=== PATIENT | male | born 1935 | race Caucasian/White ===

== ENCOUNTER 2024-07-12 12:21 | Emergency (ER) | payer MEDICARE, SELFPAY ==
[2024-07-12] VITALS (7 sets, daily range): BP systolic 101–150; BP diastolic 56–83; PULSE 76–93; RESP 16–22; TEMP 36.7–37.2; O2SAT 95–98; BMI 23.3
--- NOTE | 2024-07-12 12:43 | EKG_ITS ---
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
--- NOTE | 2024-07-12 13:05 | XR_ITS ---
Examination: AP chest single view Technique one AP portable semiupright chest single view Exam date and time: July 12, 2024 at 1336 hrs. Indications: Onset chest pain today. Findings: Minor prominence cardiac contour Cardiac leads satisfactory position Mild vascular congestion Minor atelectasis left base Prominent osteopenia Impression: Mild vascular congestion
--- NOTE | 2024-07-12 13:07 | PD.EDCHEST ---
ED Chest Pain RME/HPI General Chief Complaint: Shortness of Breath/Dyspnea Stated Complaint: ABDOMINAL PAIN Time Seen by Provider: 07/12/24 12:52 Arrival date/time: 07/12/24 12:21 RME / HPI RME / HPI narrative: 88-year-old male patient came in for evaluation regarding substernal chest pain. Onset of symptoms since 7:00 this morning, woke up with sudden onset of substernal chest pain, described as tiring, severity moderate. Patient denies any cough. Denies any nausea but feels like dry heaving. Patient denies any fever. Denies any trauma or fall. Patient waited for it to come down however is just getting worse that is why the called EMS. Patient was given fentanyl 100 mcg, and nitro with no relief. Denies any other complaints. Related Data Home Medications ?Medication ?Instructions ?Recorded ?Confirmed calcium carbonate (Natural Calcium) 1 tab PO BID ##0 12/28/15 01/26/19 cholecalciferol (vitamin D3) 25 1,000 unit PO BID #0 tabs 12/28/15 01/26/19 mcg (1,000 unit) capsule (Vitamin D3) fluticasone propionate 50 2 spray intranasal QDAY #0 spry 12/28/15 01/26/19 mcg/actuation nasal spray,suspension ketorolac 10 mg tablet 10 mg PO DAILY #0 tabs 12/28/15 01/26/19 butalbital 50 mg-acetaminophen 325 1 tab PO Q4H #0 caps 05/12/16 01/16/22 mg tablet diphenhydramine HCl 25 mg capsule 25 mg PO Q4H ##0 05/12/16 01/26/19 loratadine 10 mg tablet (Claritin) 10 mg PO QDAY #0 tabs 05/12/16 01/26/19 omega 4-siw-ozc-fish oil 1,200 mg 1,200 mg PO DAILY ##0 05/12/16 01/26/19 (144 mg-216 mg) capsule acetaminophen 500 mg tablet 500 mg PO Q6H PRN Pain 07/06/17 01/26/19 losartan 100 mg tablet 100 mg PO QDAY 07/06/17 01/16/22 metoprolol succinate 25 mg 25 mg PO QDAY 08/22/22 08/22/22 tablet,extended release 24 hr Previous Rx's ?Medication ?Instructions ?Recorded amoxicillin 875 mg-potassium 1 tab PO BID #14 tabs 07/12/24 clavulanate 125 mg tablet doxycycline monohydrate 100 mg 100 mg PO BID #14 caps 07/12/24 capsule ketorolac 10 mg tablet 10 mg PO Q8H PRN pain 5 days #20 07/12/24 tabs pantoprazole 40 mg tablet,delayed 40 mg PO QDAY #20 tabs 07/12/24 release (Protonix) Allergies Allergy/AdvReac Type Severity Reaction Status Date / Time aspirin Allergy Severe ITCHINESS Verified 01/16/22 09:39 Sulfa (Sulfonamide Allergy Severe Rash Verified 01/16/22 09:39 Antibiotics) terazosin Allergy Severe VOMITING, Verified 01/16/22 09:39 NAUSEA, UNCONCIOUSNESS Tetanus Vaccines and Toxoid Allergy Severe OLD Verified 01/16/22 09:39 TETANUS SHOT- SKIN RASH ciprofloxacin Allergy Intermediate Rash Verified 01/16/22 09:39 Quinolones Allergy Mild Rash Verified 01/16/22 09:39 latex Allergy Unknown Verified 01/16/22 09:39 celecoxib AdvReac Severe CAUSES Verified 01/16/22 09:39 MOUTH SORES codeine AdvReac Severe Vomiting Verified 01/16/22 09:39 oxycodone AdvReac Severe Vomiting Verified 01/16/22 09:39 Review of Systems Review of Systems Narrative Review of Systems: Review of system reviewed and within normal limits except mentioned in HPI ED Exam Narrative Physical exam: VITAL SIGNS: Reviewed. GENERAL APPEARANCE: Alert and interactive, follows commands, in pain, fragile early HEAD AND FACE: Non-traumatic. ENT: PERRL, pink conjunctivitis, eyelid no trauma, Mucous membrane moist. NECK: Supple, nontender, no nuchal rigidity. CHEST: No tenderness, no crepitus, no paradoxical movement, no retractions. LUNGS: Clear, well ventilated, symmetric, no rales, no wheezing, no ronchi, no stridor, good breath sounds bilaterally. HEART: Regular rate, regular rhythm, no murmur, no gallops. ABDOMEN: Soft, positive bowel sounds, nondistended, no guarding, nontender, no rebound, no masses, RECTAL: Deferred. GENITAL: Deferred. NEUROLOGICAL: Gross motor function intact sensory function intact, Appropriate for age. MUSCULOSKELETAL: low back nontender, full range of motion. EXTREMITIES: Nontender, full range of motion. SKIN: Color pink, dry, no rash, no lacerations, no abrasions, no contusions. LYMPHATICS: Deferred. Course Quality Measures none Orders Category Date Time Status CT Screening NOW Care 07/12/24 14:40 Active EKG (ED ONLY) *Do not use* NOW Care 07/12/24 12:[address] angio chest abdomen pelvis Stat Exams 07/12/24 15:01 Completed EKG (ED Only) Stat Exams 07/12/24 12:43 Draft US gall bladder Stat Exams 07/12/24 14:40 Completed XR chest 1V Stat Exams 07/12/24 13:05 Completed B-Type Natriuretic Peptide Stat Lab 07/12/24 13:20 Completed CBC [CBC] Stat Lab 07/12/24 13:20 Completed Comprehensive Metabolic Panel Stat Lab 07/12/24 13:20 Completed Partial Thromboplastin Time Stat Lab 07/12/24 13:20 Completed Prothrombin Time with INR Stat Lab 07/12/24 13:20 Completed Troponin I Stat Lab 07/12/24 13:20 Completed Urinalysis, C/S if Indicated Stat Lab 07/12/24 18:00 Completed Azithromycin Inj [Zithromax Inj] 500 mg Med 07/12/24 18:54 Discontinued Sodium Chloride 0.9% 250 ml [Ns] 250 ml IV X1 HYDROmorphone INJ [Dilaudid Inj] Med 07/12/24 13:04 Discontinued 1 mg IVP X1 ONE Ketorolac Inj [Toradol Inj] Med 07/12/24 18:54 Discontinued 30 mg IVP X1 ONE Ondansetron Inj [Zofran Inj] Med 07/12/24 13:04 Discontinued 4 mg IV X1 ONE Simethicone [Mylicon Chew] Med 07/12/24 18:54 Discontinued 180 mg PO X1 ONE cefTRIAXone [Rocephin] 1,000 mg Med 07/12/24 18:54 Discontinued Sodium Chloride 0.9% [Ns] 50 ml IV X1 Vital Signs Vital signs: Vital Signs Temperature 98.1 F 07/12/24 12:32 Pulse Rate 81 07/12/24 12:32 Respiratory Rate 19 07/12/24 12:32 Blood Pressure 134/56 H 07/12/24 12:32 Pulse Oximetry (%) 97 07/12/24 12:32 Oxygen Delivery Method Nasal Cannula 07/12/24 12:32 Oxygen Flow Rate 4 07/12/24 12:32 Chest Pain MDM Narrative [facility] Narrative:: 88-year-old male patient came in for evaluation regarding substernal chest pain. Onset of symptoms since 7:00 this morning, woke up with sudden onset of substernal chest pain, described as tiring, severity moderate. Patient denies any cough. Denies any nausea but feels like dry heaving. Patient denies any fever. Denies any trauma or fall. Patient waited for it to come down however is just getting worse that is why the called EMS. Patient was given fentanyl 100 mcg, and nitro with no relief. Denies any other complaints. EKG showed paced rhythm, ventricular to 64 bpm, no ST segment elevation depression noted. Laboratory workup all came back unremarkable. Including normal troponin. CT A chest and abdomen showed Pronounced inflammatory change about the right sternoclavicular joint, clinical correlation advised No thoracic aortic aneurysm dilatation Negative for pulmonary artery hypertension Negative for pulmonary artery emboli COPD Bibasilar pneumonia Primary hepatocellular disease Perinephric stranding, clinical correlation advised Normal appendix No bowel obstruction or diverticulitis Moderate prostatomegaly Chest x-ray came back mild vascular congestion, ultrasound of gallbladder showed no acute pathology. Patient received ceftriaxone IV and Zithromax IV. Prior to discharge patient's chest pain is totally gone, and patient satting 95% on room air. Patient appears nontoxic and hemodynamically stable. Patient discharged home and instructed to follow-up with primary care provider in 24 to 48 hours. Instructed to return to the emergency department immediately if worsening of symptoms Patient data External records reviewed:: None Clinical information provided by:: patient and family Social determinants that could affect healthcare access:: none Patient has the following chronic illnesses:: Hypertension, history of breast cancer, pacemaker How is presenting disease/condition affected by chronic disease/condition?: exacerbated by Evaluation data The following diagnostics were reviewed and interpreted by me:: lab results, radiology exam(s) and EKG tracing(s) Lab and/or radiology exams considered but not ordered:: None Interpretation Summary: See results in MDM Medications / Prescriptions Medications or Prescriptions considered but not ordered:: None Medication administrations:: Medication Administration History Discontinued Medications Hydromorphone HCl (Hydromorphone Inj 2 Mg/Ml Vial) 1 mg IVP X1 ONE Stop: 07/12/24 13:05 Last Admin: 07/12/24 13:48 Dose: 1 mg Documented By: MAVERICK Ceftriaxone Sodium 1,000 mg/ (Sodium Chloride) 50 mls @ 100 mls/hr IV X1 ONE Stop: 07/12/24 19:23 Last Infusion: 07/12/24 20:06 Dose: Infused Documented By: Admin: 07/12/24 19:36 Dose: 100 mls/hr Documented By: PRAVEENA Azithromycin 500 mg/ Sodium (Chloride) 250 mls @ 250 mls/hr IV X1 ONE Stop: 07/12/24 19:53 Last Admin: 07/12/24 20:07 Dose: 250 mls/hr Documented By: RACHID Ketorolac Tromethamine (Ketorolac Inj 30 Mg/Ml Vial) 30 mg IVP X1 ONE Stop: 07/12/24 18:55 Last Admin: 07/12/24 19:33 Dose: 30 mg Documented By: PRAVEENA Ondansetron HCl (Ondansetron Inj 2 Mg/Ml Inj 2 Ml) 4 mg IV X1 ONE; Protocol Stop: 07/12/24 13:05 Last Admin: 07/12/24 13:47 Dose: 4 mg Documented By: MAVERICK Simethicone (Simethicone 80 Mg Chew) 180 mg PO X1 ONE Stop: 07/12/24 18:55 Last Admin: 07/12/24 20:43 Dose: 180 mg Documented By: PRAVEENA Simethicone, Zofran Toradol Zithromax and ceftriaxone IV and IV Dilaudid also. Consultations Consultation(s) initiated? (list below): No Diagnosis Chest Pain Differential Diagnosis: pneumothorax and chest pain Most likely diagnosis given after review of the tests above:: Pneumonia, chest pain Admission Indicated Admission indicated?: not indicated Explain why admission is indicated or not indicated:: Stable Admission Request Was there a request for admission?: No Disposition Plan Disposition Plan: Discharge Discharge Attestation Discharge Attestation: The patient and all family members were given an opportunity to ask questions and understood the discharge instructions. Discharge instructions specifically effects, indications for sooner follow up or return to the emergency department, and the expected course of current diagnosis. Patient condition: Stable Discharge Plan Plan Patient Disposition: HOME (Self Care) Disposition Comment: Stable Prescriptions/Referrals Prescriptions/Med Rec: New amoxicillin-pot clavulanate 875-125 mg tablet 1 tab PO BID Qty: 14 0RF doxycycline monohydrate 100 mg capsule 100 mg PO BID Qty: 14 0RF pantoprazole [Protonix] 40 mg tablet,delayed release (DR/EC) 40 mg PO QDAY Qty: 20 0RF ketorolac 10 mg tablet 10 mg PO Q8H PRN (Reason: pain) 5 Days Qty: 20 0RF No Action ketorolac 10 mg Tablet 10 mg PO DAILY Qty: 0 calcium carbonate [Natural Calcium] 500 MG tablet 1 tab PO BID Qty: 0 fluticasone propionate 50 mcg/actuation [place],Suspension 2 spray INTRANASAL QDAY Qty: 0 cholecalciferol (vitamin D3) [Vitamin D3] 1,000 UNIT tablet 1,000 unit PO BID Qty: 0 butalbital-acetaminophen 50-325 mg Tablet 1 tab PO Q4H Qty: 0 diphenhydramine HCl 25 mg Capsule 25 mg PO Q4H Qty: 0 loratadine [Claritin] 10 MG tablet 10 mg PO QDAY Qty: 0 omega 5-zis-jkp-fish oil 1,200 (144-216) mg Capsule 1,200 mg PO DAILY Qty: 0 acetaminophen 500 mg Tablet 500 mg PO Q6H PRN (Reason: Pain) losartan 100 mg Tablet 100 mg PO QDAY metoprolol succinate 25 mg Tablet Extended Release 24 Hr 25 mg PO QDAY Referrals: Pamela Varela MD [Primary Care Provider] - In 1 week Problem List Clinical Impression: Chest pain, Pneumonia Patient/Caregiver Discharge Instructions Discharge Activity: activity as tolerated Education Materials: ED Pneumonia (Adult) Additional Instructions: Thank you for the opportunity for serving you today. You are stable for discharged . You are advised to: Follow-up with your PCP in 1 to 2 days Return to ED for worsening of symptoms Increase oral fluids Take medication as prescribed Print Language: Sri [place]an Stand Alone Forms: Lynette Award Info., Patient Portal Info Letter PA/CIGARETTE LIGHTER REPAIRER Supervising Physician PA/JASON Supervising Physician: MD Carol
[2024-07-12] MEDS: ONDANSETRON INJ 2 MG/ML INJ 2 ML 4 MG IV (13:47)
[2024-07-12] MEDS: HYDROmorphone INJ 2 MG/ML VIAL 1 MG IVP (13:48)
[2024-07-12 13:55] LABS: Basophils # (Auto) 0.1 Thou/mm3 (0.0-0.2); Basophils % (Auto) 1 % (0-2.5); Eosinophils # (Auto) 0.1 Thou/mm3 (0.0-0.5); Eosinophils % (Auto) 1 % (0-10); Hematocrit 37.7 % (41.0-53.0); Hemoglobin 12.3 g/dL (13.5-16.0); Immature Granulocytes % (Auto) 0 % (0-0); Immature Granulocytes Auto 0.03 Thou/mm3 (0.00-0.00); Lymphocytes # (Auto) 0.5 Thou/mm3 (1.0-4.8); Lymphocytes % (Auto) 6 % (10-50); Mean Corpuscular HGB Conc 32.6 g/dl (31.0-37.0); Mean Corpuscular Hemoglobin 28.3 pg (25.0-35.0); Mean Corpuscular Volume 87 fL (80-100); Monocytes # (Auto) 0.8 Thou/mm3 (0.0-0.8); Monocytes % (Auto) 10 % (0-12); Neutrophils # (Auto) 6.3 Thou/mm3 (1.8-7.7); Neutrophils % (Auto) 82 % (37-80); Nucleated Red Blood Cell % 0 /100 WBC (0); Platelet Count 228 Thou/mm3 (140-440); RDW Standard Deviation 46.3 fL (35.1-43.9); Red Blood Count 4.34 Miln/mm3 (4.50-5.90); White Blood Count 7.7 Thou/mm3 (3.8-10.6)
[2024-07-12 14:03] LABS: B-Type Natriuretic Peptide 167 pg/mL (0-100); INR 1.1 (0.9-1.3); Partial Thromboplastin Time 32.1 Seconds (22.0-36.0); Prothrombin Time 12.2 Seconds (9.0-12.2)
[2024-07-12 14:15] LABS: Alanine Aminotransferase 8 U/L (10-49); Albumin/Globulin Ratio 1.5 (1.2-2.2); Alkaline Phosphatase 103 U/L (46-116); Anion Gap 7 (7-16); Aspartate Amino Transferase 15 U/L (0-34); BUN/Creatinine Ratio 14 Ratio (12-20); Bilirubin,Total 1.5 mg/dL (0.3-1.2); Blood Urea Nitrogen 17 mg/dL (9-23); Calcium 9.7 mg/dL (8.3-10.6); Calcium (Corrected) 9.7 mg/dL (8.5-10.1); Carbon Dioxide 23.9 mMol/L (20.0-31.0); Chloride 107 mMol/L (98-107); Creatinine (Component) 1.2 mg/dL (0.6-1.3); Estimated Creatinine Clearance 33.6 mL/min (>60); Globulin 2.6 gm/dL (2.3-3.5); Glucose 116 mg/dL (74-106); Osmolality,Calculated 278 (275-295); Sodium 138 mMol/L (136-145); Total Protein 6.6 gm/dL (5.7-8.2); Troponin I < 0.020 ng/mL (0.0-0.045); eGFR 58 See Note
--- NOTE | 2024-07-12 14:40 | XR_ITS ---
Examination: Abdomen sonogram, Limited Date and time of exam: July 12, 2024 1717 hrs. Indications: Epigastric pain beginning 2 days ago with elevated total bilirubin on laboratory examination today Technique: Real-time danielle scale transabdominal sonographic images of the upper abdomen obtained. Findings: Normal gallbladder Common bile duct 0.29 cm Pancreatic head 2.2 cm Liver 14.7 cm 14 mm left lobe liver cyst Normal hepatopedal portal venous flow Patent IVC Impression: Normal gallbladder Normal common bile duct Liver normal size
--- NOTE | 2024-07-12 15:01 | XR_ITS ---
Examination: CTA chest, with intravenous contrast. CTA abdomen, with intravenous contrast. CTA pelvis, with intravenous contrast. 2-D sagittal and coronal reconstructions. 3-D reconstructions. Date and time of exam: July 12, 2024 1541 hrs. Indications: Onset chest pain abdominal pain today CTDI vol (mgy) 27.32 DLP (MGycm) 1111 Technique: Multiple CTA images, 2.0 mm slice thickness, obtained chest, abdomen, pelvis, with the high-resolution 64 slice scanner. 100 cc Isovue-370 is administered intravenously. Sagittal and coronal 2-D reconstructions are obtained. 3-D reconstructions, angiographic images are obtained. 3-D postprocessing, including vascular maximum intensity projections. Low dose protocols were performed. One or more of the following dose reduction techniques were used; automated exposure control, adjustment of the mA and/or KV according to patient size, use of iterative reconstruction technique. Findings: Small right thyroid calcifications Pronounced inflammatory change at the right sternoclavicular joint AP dimension ascending thoracic aorta 3.6 cm Pulmonary artery segments are not enlarged No pulmonary artery emboli Mild enlargement cardiac contour Trace pericardial effusion COPD with areas of airspace destruction Bibasilar pneumonia with minimal pleural fluid Liver irregular in contour with 15 mm left lobe liver cyst No gallstones Spleen is not enlarged No pancreatic or adrenal mass Perinephric stranding with mildly prominent left renal collecting system No renal or ureteral calculi No abdominal aortic aneurysm dilatation No bowel obstruction Normal appendix No diverticulitis Urinary bladder intact Normal seminal vesicles Transverse prostate dimension 4.7 cm No urinary bladder mass Right inguinal hernia Diffuse advanced thoracic and lumbar degenerative disc disease Severe osteopenia Moderate narrowing hip joints Impression: Pronounced inflammatory change about the right sternoclavicular joint, clinical correlation advised No thoracic aortic aneurysm dilatation Negative for pulmonary artery hypertension Negative for pulmonary artery emboli COPD Bibasilar pneumonia Primary hepatocellular disease Perinephric stranding, clinical correlation advised Normal appendix No bowel obstruction or diverticulitis Moderate prostatomegaly
[2024-07-12 18:14] LABS: Collection Type, Urine Clean Catch; RBC,Urine 0 /hpf (0-3); WBC,Urine 0 /hpf (0-5)
[2024-07-12 18:34] LABS: Bilirubin,Urine Negative (Negative); Blood,Urine Negative (Negative); Clarity,Urine Clear (Clear/Hazy); Color,Urine Lt-Yellow (Lt Yel-Yel); Culture Indicated,Urine Not Indicated; Glucose, Urine Negative (Negative); Ketones,Urine Trace (Negative); Leukocyte Esterase,Urine Negative (Negative); Nitrite,Urine Negative (Negative); Protein,Urine Negative (Neg - Trace); Squamous Epithelial Cell,Urine < 1 /hpf (0-5); Urobilinogen,Urine Negative mg/dL (0.0-1.0)
[2024-07-12 18:49] LABS: Specific Gravity,Urine > 1.035 (1.001-1.035)
[2024-07-12] MEDS: KETOROLAC INJ 30 MG/ML VIAL IVP (19:33)
[2024-07-12] MEDS: AZITHROMYCIN INJ 500 MG in SODIUM CHLORIDE 0.9% 250 ML 250 ML 250 MG IV (20:07)
[2024-07-12] MEDS: SIMETHICONE 80 MG CHEW 180 MG PO (20:43)
== END 2024-07-12 21:31 | disposition home or self-care (01) ==
PROVIDERS: Nurse Practitioner Family; Emergency Provider Emergency Medicine; PCP Family Medicine
DX: J18.9 Pneumonia, unspecified organism (principal); J44.0 Chronic obstructive pulmonary disease with (acute) lower respiratory infection; K76.9 Liver disease, unspecified; I10 Essential (primary) hypertension; Z85.3 Personal history of malignant neoplasm of breast; Z95.0 Presence of cardiac pacemaker; Z88.2 Allergy status to sulfonamides; Z88.1 Allergy status to other antibiotic agents; Z88.6 Allergy status to analgesic agent; Z88.5 Allergy status to narcotic agent; Z91.040 Latex allergy status
CPT/HCPCS: 36415; 71045; 71275; 74174; 76705; 80053; 81001; 83880; 84484; 85025; 85610; 85730; 93005; 96365; 96375; 99285; A4649; J0456; J0696; J1885; J2405; J3490; J7050; Q9967; A9270